=== PATIENT | female | born 1950 | race Hispanic/Latino ===

== ENCOUNTER → 2022-06-25 | Day surgery (SDC) | payer MEDICARE ==
[~2022-06-25] MED LIST: ALENDRONATE SOD70 MG PO; ARAVA20 MG PO; FENTANYL CITRATE/PF 100MCG/2 ML INJ ONE; METHOTREXATE2.5 MG PO; METOPROLOL SUCC25 MG PO; MIDAZOLAM HCL 2 MG/2 ML VIAL ONE; MULTI-VITAMIN1 EACH PO; OR PHACO EYE KIT ONE; PREOP PHACO EYE KIT ONE; VITAMIN D2 PO
[2022-06-25 11:21] VITALS: BP 115/61
== END | disposition home or self-care (01) ==
LOC: OR 08:37
PROVIDERS: ATTEND Ophthalmology
DX: H25.11 Age-related nuclear cataract, right eye (principal); M06.9 Rheumatoid arthritis, unspecified; D64.9 Anemia, unspecified; I87.313 Chronic venous hypertension (idiopathic) with ulcer of bilateral lower extremity; I10 Essential (primary) hypertension; K21.9 Gastro-esophageal reflux disease without esophagitis; J30.2 Other seasonal allergic rhinitis; E55.9 Vitamin D deficiency, unspecified; Z79.899 Other long term (current) drug therapy; Z86.16 Personal history of COVID-19
CPT/HCPCS: 66984; J2250; J3010; V2632

== ENCOUNTER → 2022-08-06 | Day surgery (SDC) | payer MEDICARE ==
[2022-08-05 11:40] LABS: BASOPHILS % 0.6 % (0.0-1.0); EOSINOPHILS % 0.8 % (0.0-6.0); HEMATOCRIT 35.3 % (34.2-44.1); HEMOGLOBIN 11.2 g/dL (12.0-16.0); LYMPHOCYTES # (AUTO) 0.9 (1.0-3.2); MEAN CORPUSCULAR HGB CONC 31.7 g/dL (31-35); MEAN CORPUSCULAR VOLUME 94.6 fL (81-99); MONOCYTES # (AUTO) 0.3 (0.2-0.8); MONOCYTES % 6.7 % (4.4-11.3); NEUTROPHILS # (AUTO) 3.6 (2.1-6.9); NEUTROPHILS % 72.5 % (38.7-80.0); PLATELET COUNT 229 x10e3/uL (140-360); RED BLOOD COUNT 3.73 x10e6/uL (3.6-5.1)
[~2022-08-06] MED LIST changes: +VITAMIN C1000 MG PO
[2022-08-06 12:34] VITALS: BP 131/62
== END | disposition home or self-care (01) ==
LOC: OR 09:50
PROVIDERS: ATTEND Ophthalmology
DX: H25.12 Age-related nuclear cataract, left eye (principal); Z01.812 Encounter for preprocedural laboratory examination; Z79.899 Other long term (current) drug therapy
CPT/HCPCS: 36415; 66984; 85025; J2250; J3010; V2632